=== PATIENT | male | born 1980 | race Caucasian/White ===

== ENCOUNTER 2023-09-02 12:17 | Emergency (ER) | payer MEDICAID, OTHER ==
[~2023-09-02] VITALS: Ht 175.3 cm; Wt 80.0 kg
[2023-09-02] MEDS ORDERED: ONDANSETRON ODT 4 MG TAB PO ONE (15:45)
[2023-09-02] MEDS ORDERED: ACETAMINOPHEN 500 MG TAB PO ONE (15:45)
[2023-09-02 18:10] VITALS: BP 135/63; PULSE 69; RESP 18; TEMP 98.1; O2SAT 98
[2023-09-02 19:48] LABS: COVID19 ANTIGEN SOFIA FIA NEGATIVE (NEGATIVE); Rapid Influenza B Negative (Negative)
[2023-09-02 19:54] LABS: Rapid Influenza A Positive (Negative)
[2023-09-02] MEDS ORDERED: IBUP-1455 PO (20:05)
[2023-09-02] MEDS ORDERED: ZOFR4T PO (20:05)
[2023-09-02] MEDS ORDERED: TAMIFLU PO (20:05)
[2023-09-02] MEDS ORDERED: ACET500T58 PO (20:05)
== END 2023-09-02 20:30 | disposition home or self-care (01) ==
LOC: EDBD 12:17 → ER 12:17
DX: J10.1 Influenza due to other identified influenza virus with other respiratory manifestations (principal); Z88.2 Allergy status to sulfonamides; Z20.822 Contact with and (suspected) exposure to COVID-19
CPT/HCPCS: 36415; 71046; 87426; 87804; 99284; Q0162

== ENCOUNTER 2023-11-03 10:03 | Emergency (ER) | payer MEDICAID ==
[~2023-11-03] VITALS: Ht 180.3 cm; Wt 83.5 kg
[~2023-11-03 10:03] MED LIST: ACET500T58 PO; IBUP-1455 PO; TAMIFLU PO; ZOFR4T PO
[2023-11-03 10:51] VITALS: BP 162/94; PULSE 81; RESP 16; TEMP 98.3; O2SAT 98
[2023-11-03] MEDS ORDERED: DOXY-286 PO (11:10)
[2023-11-03] MEDS ORDERED: [UNRECOGNIZED DRUG - CODE] EX (11:10)
== END 2023-11-03 11:13 | disposition home or self-care (01) ==
LOC: ER 10:03
DX: L70.9 Acne, unspecified (principal); Z79.899 Other long term (current) drug therapy; Z88.8 Allergy status to other drugs, medicaments and biological substances